=== PATIENT | male | born 1995 | race Caucasian/White ===

== ENCOUNTER → 2020-11-03 | Outpatient (CLI) | payer BC | LOC: M LABSMTC 11:38 | PROVIDERS: ATTEND Anesthesiology | DX: Z01.812 Encounter for preprocedural laboratory examination (principal) ==

== ENCOUNTER 2020-11-07 05:58 | Day surgery (SDC) | payer BC ==
[~2020-11-07] VITALS: Ht 175.3 cm; Wt 76.7 kg
[2020-11-07] MEDS ORDERED: LR 1,000 ML IV ONE (06:00)
[2020-11-07] MEDS ORDERED: ceFAZolin SOD 2 GM in IV 1 EA IV ONE (06:00)
[2020-11-07] MEDS ORDERED: LIDOCAINE 1% SDV 30ML VIAL As Ordered ONE (07:09)
[2020-11-07] MEDS ORDERED: BUPIVACAINE HCL 0.25% 30ML VIAL As Ordered ONE (07:09)
[2020-11-07] MEDS ORDERED: SUGAMMADEX SODIUM 500 MG/5 ML VIAL (BRIDION) As Ordered ONE (07:18)
[2020-11-07] MEDS ORDERED: LIDOCAINE 2% 100MG/5ML SDV (FOR ANES.) As Ordered ONE (07:18)
[2020-11-07] MEDS ORDERED: MIDAZOLAM INJ 2MG/2ML VIAL (J2250 PER 1MG) As Ordered ONE (07:18)
[2020-11-07] MEDS ORDERED: ACETAMINOPHEN 1000MG 100ML IV BTL (OFIRMEV) (J0131 PER 10MG) As Ordered ONE (07:18)
[2020-11-07] MEDS ORDERED: ONDANSETRON 4MG/2ML VIAL As Ordered ONE (07:18)
[2020-11-07] MEDS ORDERED: dexameTHASONE 4 MG/ML 1ML VIAL (J1100 PER 1MG) As Ordered ONE (07:18)
[2020-11-07] MEDS ORDERED: ROCURONIUM BROMIDE 50 MG/5 ML VIAL As Ordered ONE (07:18)
[2020-11-07] MEDS ORDERED: propofoL 200 MG/20 ML VIAL As Ordered ONE (07:18)
[2020-11-07] MEDS ORDERED: fentaNYL 100 MCG/2 ML INJECTION (J3010) As Ordered ONE (07:18)
[2020-11-07] MEDS ORDERED: KETOROLAC 60MG 2ML VIAL As Ordered ONE (07:18)
--- NOTE | 2020-11-07 08:40 | ROOPDOC ---
[facility] Report Of Operation Report of Operation DATE OF PROCEDURE: 11/07/20 PREPROCEDURE DIAGNOSES: recurrent pilonidal cyst sinus tractt. POSTPROCEDURE DIAGNOSES: recurrent pilonidal cyst sinus tract. PROCEDURE PERFORMED: Excision of pilonidal cyst sinus tract, debridement of chronic wound wall/tract. SURGEON: Damon Shen MD ANESTHESIA: General Endotracheal Anesthesia. ESTIMATED BLOOD LOSS: Approximately 10 mL. COMPLICATIONS: none. REMARKS: 25 M who [place] prior [place], wound left open to heal secondarily and has mostly healed. Earlier this year noted persistent drainage below the prior scar/excision site.. FINDINGS: prior scar at the midline gluteal cleft that appears healed. About 4 cms inferior to the scar and at the midline, midway between coccyx and anal verge, an inferior midline sinus tract with hair within the tract and loose granulation tissue on the wall is noted with small amount of drainage. No lateral sinus tracts. No erythema or notable subcutaneous tissue induration PROCEDURE NOTE: curette/debridement of the sinus tract, I opened up the skin and subcutaneous tissue laterally on the inferior edge of the scar to gain access to the pilonidal cyst/chronic inflamed tissue, debrided this and connected the inferior tract to the lateral opening. 1/4 inch iodoform gauze used for packing. DESCRIPTION OF PROCEDURE: Patient received a dose of Ancef 2 g IV preoperatively for wound prophylaxis. He was brought to the operating room. Sequential compression device placed on both lower extremities for DVT prophylaxis. General endotracheal anesthesia established while he was on the stretcher. He was then transferred to the procedure table in the prone position with his pressure points padded. I clipped the hair around the buttocks and gluteal cleft. His buttocks were taped apart for better view of the midline cleft. This was then prepped and draped in the usual sterile fashion. We paused for a surgical timeout using both pre- incision safety checklist to verify correct patient, procedure site and additional clinical information prior to beginning the procedure On examination he has a prior slightly widened scar at the sacral level at the midline gluteal cleft from prior pilonidal cystectomy that was performed about a year ago. About 3 or 4 cm inferior to this is an opening with loose granulation tissue at the midline midway between the scar and the anal verge. Small amount of serous drainage is noted. Small amount of sparse hair also noted coming off from the sinus tract opening. The skin surrounding this appears thin and easily friable with contact bleeding. I did not note any surrounding soft tissue induration. Also the soft tissue underneath the scar appears pliable and soft. I did not see any lateral sinus tract opening. I infiltrated the skin and soft tissue surrounding the opening of the sinus tract with a combination of 1% lidocaine and 1/4% Marcaine. I used a curette to debride the sinus tract and slightly enlarge the wound opening. After doing this I made an incision about 2 to 3 cm lateral to the midline towards the bottom of the prior scar and created a skin flap as it goes towards the midline. I then also used a curette to enter the midline sinus cavity to debride the epithelialized tissue and loose granulation tissue within the cavity. I was able to access the soft tissue underneath the scar also with this. After doing so I noted that the skin flap between the inferior sinus tract and my lateral opening is quite thin and probably will not survive and will make the wound care more difficult so I decided to excise the whole skin flap to create 1 fairly moderate sized opening about 4 x 3 cm or so and also about 3 cm deep into the sinus tract. They further debride the wall to clear the of the epithelialized tissue typically found on chronic inflamed wounds. This was then irrigated hemostasis checked with bleeding points cauterized. I then packed the wound with 1/4 inch iodoform gauze bulky gauze dressing then placed on top of it held in place by postsurgical underwear. Patient tolerated the procedure well. He was returned supine on the stretcher awakened extubated and brought to recovery room in stable condition. DAMON SHEN MD Nov 07, 2020 08:39
[2020-11-07] MEDS ORDERED: oxyCODONE 5MG TAB PO PRN (09:05)
[2020-11-07] MEDS ORDERED: fentaNYL 100 MCG/2 ML INJECTION (J3010) IV PRN (09:05)
[2020-11-07] MEDS ORDERED: METOCLOPRAMIDE INJ 10MG/2ML VIAL (J2765 PER 1) IV PRN (09:05)
[2020-11-07] MEDS ORDERED: ONDANSETRON 4MG/2ML VIAL IV PRN (09:05)
[2020-11-07] MEDS ORDERED: LR 1,000 ML IV SCH (09:05)
[2020-11-07] MEDS ORDERED: PERCOCET 5MG/325MG TAB PO PRN (09:30)
[2020-11-07] MEDS ORDERED: KETOROLAC 30 MG/ML 1ML VIAL IV PRN (09:30)
[2020-11-07 10:45] VITALS: BP 162/86
== END 2020-11-07 11:18 | disposition home or self-care (01) ==
LOC: M SDC 05:58 → EDUNIT# 09:30 → M SDC 11:18
PROVIDERS: ATTEND Surgery
DX: L05.91 Pilonidal cyst without abscess (principal)
CPT/HCPCS: 11770; J0131; J0690; J1100; J1885; J2250; J2405; J3010